=== PATIENT | male | born 1980 | race Caucasian/White ===

== ENCOUNTER 2018-02-22 03:21 | Emergency (ER) | END 2018-02-22 03:59 | disposition home or self-care (01) ==

== ENCOUNTER 2019-04-17 00:57 | Emergency (ER) | payer OTHER ==
[~2019-04-17] VITALS: Ht 170.2 cm; Wt 66.2 kg
[~2019-04-17 00:57] MED LIST: ALPR1TAB2 PO; CYCL10TA7 PO; IBUP-1542 PO; QUET100T PO
[2019-04-17 01:16] VITALS: Ht 170.2 cm; Wt 66.2 kg
[2019-04-17] MEDS ORDERED: CEPH-443 PO (02:32)
[2019-04-17] MEDS ORDERED: NAPR-985 PO (02:32)
[2019-04-17] MEDS ORDERED: SULF1TAB31 PO (02:32)
[2019-04-17 03:40] VITALS: BP 136/81; PULSE 95; RESP 18
--- NOTE | 2019-04-17 05:41 | ERD ---
ER Documentation Chief Complaint Chief Complaint states insect bite to right lower leg x 4 days HPI 39-year-old male presented to the emergency department complaining of swelling and abscess to the right lower extremity for the past 4 days. Symptoms have worsened. He denies any fevers, chills, or other symptoms at this time. Symptoms are moderate in severity and constant. Patient does admit to IV drug use. ROS All systems reviewed and are negative except as per history of present illness. Medications Home Meds Active Scripts Naproxen* (Naprosyn*) 500 Mg Tablet, 500 MG PO BID PRN for PAIN AND/OR INFLAMMATION, #30 TAB Prov:ANGEL BURDEN PA-C 04/17/19 Sulfamethoxazole/Trimethoprim* (Bactrim Ds* Tablet) 1 Each Tablet, 1 TAB PO BID, #14 TAB Prov:ANGEL BURDEN PA-C 04/17/19 Cephalexin* (Keflex*) 500 Mg Capsule, 500 MG PO QID for 7 Days, CAP Prov:ANGEL BURDEN PA-C 04/17/19 Cyclobenzaprine Hcl* (Cyclobenzaprine Hcl*) 10 Mg Tablet, 10 MG PO TID, #15 TAB Prov:[employer] 02/22/18 Ibuprofen* (Motrin*) 600 Mg Tab, 600 MG PO Q6H PRN for PAIN AND OR ELEVATED TEMP, #30 TAB Prov:[employer]IO [employer] 02/22/18 Ibuprofen* (Motrin*) 600 Mg Tab, 600 MG PO Q6H PRN for PAIN AND OR ELEVATED TEMP, #30 TAB Prov:NAVEED SANCHEZ MD 03/02/16 Reported Medications Alprazolam* (Xanax*) 1 Mg Tab, 1 MG PO DAILY PRN for ANXIETY, TAB 03/22/15 Quetiapine Fumarate* (Seroquel*) 100 Mg Tablet, 100 MG PO HS, TAB 03/22/15 Allergies Allergies: Coded Allergies: No Known Allergy (Unverified , 03/22/15) PMhx/Soc Medical and Surgical Hx: pt denies Surgical Hx History of Surgery: No Anesthesia Reaction: No Hx Neurological Disorder: No Hx Respiratory Disorders: No Hx Cardiac Disorders: No Hx Psychiatric Problems: No Hx Miscellaneous Medical Probl: Yes (ETOH and drug abuse) Hx Alcohol Use: Yes (social) Hx Substance Use: Yes (marijuana) Hx Tobacco Use: Yes Smoking Status: Current every day smoker FmHx Family History: No diabetes Physical Exam Vitals Vital Signs Date Temp Pulse Resp B/P (MAP) Pulse Ox O2 O2 Flow FiO2 Time Delivery Rate 04/17/19 98.5 95 18 136/81 98 03:40 (99) 04/17/19 98.4 99 18 140/95 98 01:16 (110) Physical Exam Const: No acute distress Head: Atraumatic Eyes: Normal Conjunctiva ENT: Normal External Ears, Nose and Mouth. Neck: Full range of motion. No meningismus. Resp: Clear to auscultation bilaterally Cardio: Regular rate and rhythm, no murmurs Skin: Localized area of erythema with centralized pustule to the medial portion of the right lower extremity just superior to the right ankle. There is no lymphatic streaking or warmth. No crepitus on palpation. Back: No midline or flank tenderness Ext: No cyanosis, or edema Neur: Awake and alert Psych: Normal Mood and Affect Procedures/MDM 39-year-old male presents to the emergency department for signs and symptoms consistent with cellulitis of the right lower extremity. No evidence to suggest necrotizing fasciitis, sepsis, or other emergencies. Patient was counseled reg arding cessation of IV drug abuse. Patient is stable and appropriate for discharge and further outpatient management with prescription for naproxen, Keflex, Bactrim. He was advised to return here immediately for any new, worsening, or concerning symptoms. He was in agreement with the diagnosis, plan, need for follow-up, return precautions. Patient's blood pressure was elevated (>120/80) but appears stable without evidence of hypertension emergency or urgency. The patient is to follow-up and pursue outpatient monitoring and therapy with their primary care physician within 1 week and return immediately if they have any new, worsening, or concerning symptoms. Departure Diagnosis: Primary Impression: Cellulitis Additional Impression: IV drug abuse Condition: Fair Patient Instructions: Cellulitis Referrals: COMM[facility] YOU HAVE RECEIVED A MEDICAL SCREENING EXAM AND THE RESULTS INDICATE THAT YOU DO NOT HAVE A CONDITION THAT REQUIRES URGENT TREATMENT IN THE EMERGENCY DEPARTMENT. FURTHER EVALUATION AND TREATMENT OF YOUR CONDITION CAN WAIT UNTIL YOU ARE SEEN IN YOUR DOCTORS OFFICE WITHIN THE NEXT 1-2 DAYS. IT IS YOUR RESPONSIBILITY TO MAKE AN APPOINTMENT FOR FOLOW-UP CARE. IF YOU HAVE A PRIMARY DOCTOR --you should call your primary doctor and schedule an appointment IF YOU DO NOT HAVE A PRIMARY DOCTOR YOU CAN CALL OUR PHYSICIAN REFERRAL HOTLINE AT IF YOU CAN NOT AFFORD TO SEE A PHYSICIAN YOU CAN CHOSE FROM THE FOLLOWING [facility] [address] [facility]. [facility] [address] [facility] [address] [facility] [facility] [address] [facility]. [facility] [address] [facility]. [facility] [address] Additional Instructions: Call your primary care doctor TOMORROW for an appointment during the next 1-2 days.See the doctor sooner or return here if your condition worsens before your appointment time. ANGEL BURDEN PA-C Apr 17, 2019 05:41
== END 2019-04-17 03:40 | disposition home or self-care (01) ==
LOC: FTE 00:57
DX: L03.115 Cellulitis of right lower limb (principal); F19.10 Other psychoactive substance abuse, uncomplicated; F17.210 Nicotine dependence, cigarettes, uncomplicated
CPT/HCPCS: 99283